=== PATIENT | female | born 1975 | race African-American/Black ===

== ENCOUNTER 2017-09-27 21:39 | Emergency (ER) | payer MEDICAID ==
[~2017-09-27] VITALS: Ht 167.6 cm; Wt 159.0 kg
[~2017-09-27 21:39] MED LIST: ALBU6.7H INH; GLIP10TA10 PO; HUMILIN R SUBCUT; HYDR25TA PO; LISI1TAB13 PO; LISINOPRIL PO; LORA10TA7 PO; MOME13HF2 INH; OMEP20TA2 PO; [UNRECOGNIZED DRUG - OTHER] SUBCUT
[2017-09-27] MEDS ORDERED: METHYLPREDNISOLONE SOD SUCC 125 MG/2 ML VIAL IV STA (22:30)
[2017-09-27] MEDS ORDERED: ALBUTEROL (0.083%) 2.5MG/3ML NEB HHN STA (22:30)
[2017-09-27] MEDS ORDERED: MAGNESIUM 2 G PREMIX 50 ML IV ONE (22:30)
[2017-09-27] MEDS ORDERED: IPRATROPIUM BROMIDE (0.02%) 0.5MG/2.5ML NEB HHN STA (22:30)
[2017-09-27 23:05] LABS: HEMATOCRIT 47.1 % (36.0-48.0); HEMOGLOBIN 16.1 g/dL (12.0-16.0); MEAN CORPUSCULAR HEMOGLOBIN 26.7 pg (28.0-32.0); MEAN CORPUSCULAR VOLUME 77.8 fL (81.0-99.0); PLATELET 123 x1000/uL (130-400); RED BLOOD CELL COUNT 6.05 mill/uL (4.2-5.4); RED CELL DISTRIBUTION WIDTH 19.5 % (11.6-14.6)
[2017-09-28 04:01] VITALS: BP 118/99
== END 2017-09-28 04:06 | disposition home or self-care (01) ==
LOC: ER 22:12
DX: J45.901 Unspecified asthma with (acute) exacerbation (principal); R04.1 Hemorrhage from throat; J44.9 Chronic obstructive pulmonary disease, unspecified; E11.9 Type 2 diabetes mellitus without complications; G47.419 Narcolepsy without cataplexy; I10 Essential (primary) hypertension; I25.2 Old myocardial infarction; F12.10 Cannabis abuse, uncomplicated; E78.00 Pure hypercholesterolemia, unspecified; E66.9 Obesity, unspecified; Z79.84 Long term (current) use of oral hypoglycemic drugs; Z86.73 Personal history of transient ischemic attack (TIA), and cerebral infarction without residual deficits; Z88.0 Allergy status to penicillin; Z87.891 Personal history of nicotine dependence; Z93.0 Tracheostomy status
CPT/HCPCS: 36415; 80048; 85027; 94640; 96365; 96366; 96375; 99285; J2930; J3475; J7611; Z7610

== ENCOUNTER 2018-08-07 12:01 | Inpatient (IN) | payer MEDICAID ==
[~2018-08-07] VITALS: Ht 162.6 cm; Wt 153.3 kg
[2018-08-07] MEDS ORDERED: SODIUM CHLORIDE 0.9% 2,000 ML IV ONE (12:19)
[2018-08-07 13:02] LABS: BASOPHILS % 0.6 % (0.0-2.0); EOSINOPHILS % 1.2 % (0.0-5.0); HEMATOCRIT. 43.8 % (36.0-48.0); HEMOGLOBIN. 15.1 g/dL (12.0-16.0); LYMPHOCYTES % 10.6 % (20.0-50.0); MEAN CORPUSCULAR HEMOGLOBIN 28.1 pg (28.0-32.0); MEAN CORPUSCULAR VOLUME 81.6 fL (81.0-99.0); MEAN PLATELET VOLUME 11.6 fl (7.4-10.4); MONOCYTES % 6.8 % (2.0-8.0); NEUTROPHILS % 80.8 % (40.0-76.0); PLATELET 100 x1000/uL (130-400); RED BLOOD CELL COUNT 5.37 mill/uL (4.2-5.4); RED CELL DISTRIBUTION WIDTH 14.9 % (11.6-14.6)
[2018-08-07 13:20] LABS: HCG SCREEN NEGATIVE
[2018-08-07 13:21] LABS: CHLORIDE 98 mEq/L (98-107)
[2018-08-07 13:26] LABS: ETHANOL BLOOD < 10 mg/dL
[2018-08-07 13:30] LABS: BETA HYDROXYBUTYRATE 0.3 mMol/L (0.0-0.3); CARBAMAZEPINE 6.1 ug/mL (4-12)
[2018-08-07 13:31] LABS: PHENOBARBITAL 2.4 ug/mL (15.0-40.0)
[2018-08-07 13:34] LABS: VALPROIC ACID < 3.0 ug/mL (50-100)
[2018-08-07] MEDS ORDERED: SODIUM CHLORIDE 0.9% 1,000 ML IV ONE ×2 (15:57→17:29)
[2018-08-07 16:18] LABS: CLARITY URINE CLEAR (CLEAR); COLOR URINE YELLOW (YELLOW); KETONES URINE NEGATIVE (NEGATIVE); LEUKOCYTE ESTERASE URINE TRACE (NEGATIVE); NITRITE URINE NEGATIVE (NEGATIVE); OCCULT BLOOD URINE TRACE (NEGATIVE); PROTEIN URINE 1+ (NEGATIVE); SPECIFIC GRAVITY URINE 1.027 (1.005-1.030); UROBILINOGEN URINE 0.2 E.U./dL (0.2-1.0)
[2018-08-07 17:08] LABS: *AMPHETAMINES SCREEN URINE NEGATIVE (NEGATIVE)
[2018-08-07 17:09] LABS: *BARBITURATES SCREEN URINE NEGATIVE (NEGATIVE); *BENZODIAZEPINES SCREEN URINE NEGATIVE (NEGATIVE); *COCAINE SCREEN URINE NEGATIVE (NEGATIVE); METHADONE URINE SCREEN NEGATIVE (NEGATIVE); OPIATES URINE SCREEN NEGATIVE (NEGATIVE); PHENCYCLIDINE URINE SCREEN NEGATIVE (NEGATIVE)
[2018-08-07 17:10] LABS: CANNABINOID URINE SCREEN NEGATIVE (NEGATIVE)
[2018-08-07] MEDS ORDERED: CEFTRIAXONE 2 G PREMIX 50 ML IV ONE (17:15)
[2018-08-07] MEDS ORDERED: LEVETIRACETAM 1,000 MG in SODIUM CHLORIDE 0.9% 100 ML IV NR (17:30)
[2018-08-07] MEDS ORDERED: DEXT 5%/0.45% NACL 1000ML 1,000 ML IV SCH (18:10)
[2018-08-07] MEDS ORDERED: ENOXAPARIN 40MG/0.4ML SYR SUBCUT SCH (18:15)
[2018-08-07] MEDS ORDERED: ACETAMINOPHEN 650MG SUPP PR PRN (18:15)
[2018-08-07] MEDS ORDERED: ONDANSETRON HCL 4MG/2ML INJ IV PRN (18:15)
[2018-08-07] MEDS ORDERED: LORAZEPAM 2MG/ML CPJ IV PRN (18:15)
[2018-08-07] MEDS ORDERED: VANCOMYCIN 1,750 MG in DEXT 5% WATER 250 ML IV SCH (21:30)
[2018-08-07 22:40] VITALS: BP 155/93
[2018-08-07 22:45] VITALS: BP 155/93
[2018-08-08] MEDS ORDERED: DEXTROSE 50% WATER 50ML SYRINGE IV PRN (00:15)
[2018-08-08] MEDS ORDERED: LEVOFLOXACIN 500MG PREMIX 100 ML IV SCH ×2 (02:00)
[2018-08-08 04:00] VITALS: BP 155/99
[2018-08-08] MEDS: BLOOD SUGAR DIAGNOSTIC STRIP TEST SCH ×4 (06:17→21:17)
[2018-08-08] MEDS: INSULIN LISPRO 100 UNITS/ML SUBCUT SCH ×4 (06:28→21:16)
[2018-08-08 06:51] LABS: BASOPHILS % 0.9 % (0.0-2.0); EOSINOPHILS % 0.6 % (0.0-5.0); HEMATOCRIT. 37.6 % (36.0-48.0); HEMOGLOBIN. 13.3 g/dL (12.0-16.0); LYMPHOCYTES % 20.6 % (20.0-50.0); MEAN CORPUSCULAR HEMOGLOBIN 27.7 pg (28.0-32.0); MEAN CORPUSCULAR VOLUME 78.4 fL (81.0-99.0); MEAN PLATELET VOLUME 11.4 fl (7.4-10.4); MONOCYTES % 12.7 % (2.0-8.0); NEUTROPHILS % 65.2 % (40.0-76.0); PLATELET 101 x1000/uL (130-400); RED CELL DISTRIBUTION WIDTH 14.6 % (11.6-14.6)
[2018-08-08 07:26] LABS: CHLORIDE 104 mEq/L (98-107)
[2018-08-08 08:42] VITALS: BP 142/91
[2018-08-08] MEDS ORDERED: LEVETIRACETAM 500 MG in SODIUM CHLORIDE 0.9% 100 ML IV SCH (09:00)
[2018-08-08] MEDS: ENOXAPARIN 40MG/0.4ML SYR SUBCUT SCH ×2 (09:37→20:17)
[2018-08-08 12:00] VITALS: BP 139/68
[2018-08-08] MEDS: NYSTATIN POWDER 15GM TOP SCH ×2 (13:58→18:05)
[2018-08-08 16:11] VITALS: BP 139/82
[2018-08-08] MEDS ORDERED: VANCOMYCIN 1500MG in DEXTROSE 5% WATER 250ML IV SCH ×2 (18:00→21:00)
[2018-08-08 20:00] VITALS: BP 143/87
[2018-08-08] MEDS ORDERED: LEVETIRACETAM 500MG in SODIUM CHLORIDE 0.9% 100ML IV SCH (21:00)
[2018-08-09] MEDS ORDERED: LEVOFLOXACIN 250MG PREMIX 50 ML IV SCH (02:00)
== END 2018-08-08 22:06 | disposition short-term general hospital (02) | DRG 53 ==
LOC: ER 12:11 → 8WST 18:04 → EDBEDREQ 18:09 → SUPCPDRO 18:36 → ENRESERV 20:32
PROVIDERS: ADMIT Hospitalist; ATTEND Hospitalist
DX: G40.909 Epilepsy, unspecified, not intractable, without status epilepticus (principal); L89.159 Pressure ulcer of sacral region, unspecified stage; L89.319 Pressure ulcer of right buttock, unspecified stage; L89.329 Pressure ulcer of left buttock, unspecified stage; Z93.0 Tracheostomy status; E11.65 Type 2 diabetes mellitus with hyperglycemia; E87.1 Hypo-osmolality and hyponatremia; E78.00 Pure hypercholesterolemia, unspecified; E78.5 Hyperlipidemia, unspecified; I10 Essential (primary) hypertension; N39.0 Urinary tract infection, site not specified; E66.9 Obesity, unspecified; S70.311A Abrasion, right thigh, initial encounter; X58.XXXA Exposure to other specified factors, initial encounter; Y93.89 Activity, other specified; Y92.89 Other specified places as the place of occurrence of the external cause; Y99.8 Other external cause status; Z68.43 Body mass index [BMI] 50.0-59.9, adult; I69.354 Hemiplegia and hemiparesis following cerebral infarction affecting left non-dominant side; Z79.4 Long term (current) use of insulin; Z79.899 Other long term (current) drug therapy; Z88.0 Allergy status to penicillin; Z82.49 Family history of ischemic heart disease and other diseases of the circulatory system
CPT/HCPCS: 36415; 80156; 80165; 80184; 80185; 80305; 82010; 82962; 83930; 84134; 84703; 87077; 87186; 93970; 96361; 96365; 96375; 99291; G0482; J0696; J1650; J1815; J1953; J1956; J2060; J3370; J7030; J7050; J7060

== ENCOUNTER 2019-06-02 19:25 | Emergency (ER) | payer MEDICAID ==
[~2019-06-02] VITALS: Ht 172.7 cm; Wt 132.0 kg
[2019-06-02] MEDS ORDERED: ACETAMINOPHEN 325MG TABLET PO STA (19:40)
[2019-06-02] MEDS ORDERED: PIPERACILLIN/TAZ 3.375G PREMIX 50 ML IV ONE (19:45)
[2019-06-02] MEDS ORDERED: SODIUM CHLORIDE 0.9% 1000ML BAG (SEPSIS BOLUS) IV ONE (19:45)
[2019-06-02] MEDS ORDERED: VANCOMYCIN 1 G PREMIX 200 ML IV ONE (19:45)
[2019-06-02 20:35] LABS: HEMATOCRIT. 47.8 % (36.0-48.0); HEMOGLOBIN. 16.2 g/dL (12.0-16.0); MEAN CORPUSCULAR VOLUME 82.4 fL (81.0-99.0); RED CELL DISTRIBUTION WIDTH 15.2 % (11.6-14.6)
[2019-06-02 21:27] LABS: CLARITY URINE CLOUDY (CLEAR); COLOR URINE YELLOW (YELLOW); KETONES URINE NEGATIVE (NEGATIVE); LEUKOCYTE ESTERASE URINE 2+ (NEGATIVE); NITRITE URINE POSITIVE (NEGATIVE); OCCULT BLOOD URINE 2+ (NEGATIVE); PH URINE 5.5 (4.5-8.0); PROTEIN URINE 3+ (NEGATIVE); SPECIFIC GRAVITY URINE 1.016 (1.005-1.030); UROBILINOGEN URINE 0.2 E.U./dL (0.2-1.0)
[2019-06-02 21:33] LABS: CHLORIDE 98 mEq/L (98-107); PROTHROMBIN TIME 10.5 sec (9.6-11.0)
[2019-06-02] MEDS ORDERED: LEVOFLOXACIN 750MG PREMIX 150 ML IV ONE (21:45)
[2019-06-02 23:57] VITALS: BP 185/101
== END 2019-06-03 00:44 | disposition short-term general hospital (02) ==
LOC: ER 19:25 → CANBEDREQ 06-03 00:53
DX: A41.9 Sepsis, unspecified organism (principal); J18.9 Pneumonia, unspecified organism; N30.90 Cystitis, unspecified without hematuria; Z93.0 Tracheostomy status; Z88.0 Allergy status to penicillin; J44.9 Chronic obstructive pulmonary disease, unspecified; E11.9 Type 2 diabetes mellitus without complications; E78.00 Pure hypercholesterolemia, unspecified; I10 Essential (primary) hypertension; Z86.73 Personal history of transient ischemic attack (TIA), and cerebral infarction without residual deficits
CPT/HCPCS: 36415; 71045; 80053; 81003; 82962; 83605; 83880; 84484; 85025; 85610; 87040; 87077; 87086; 87186; 93005; 96365; 96366; 96368; 99291; J1956; J3370; J7030; Z7610

== ENCOUNTER 2021-08-16 13:10 | Emergency (ER) | payer MEDICAID ==
[~2021-08-16] VITALS: Ht 170.2 cm; Wt 130.0 kg
[~2021-08-16 13:10] MED LIST changes: -ALBU6.7H INH; +ALBU6.7H15 INH
[2021-08-16] MEDS ORDERED: ONDANSETRON HCL 4MG/2ML INJ IV STA (13:30)
[2021-08-16] MEDS ORDERED: MORPHINE SULFATE 4 MG/ML CPJ (NOT FOR IM USE) IV STA (13:30)
[2021-08-16 15:58] LABS: BASOPHILS % 0.7 % (0.0-2.0); EOSINOPHILS % 4.2 % (0.0-5.0); HEMATOCRIT. 43.5 % (36.0-48.0); HEMOGLOBIN. 14.6 g/dL (12.0-16.0); LYMPHOCYTES % 26.6 % (20.0-50.0); MEAN CORPUSCULAR HEMOGLOBIN 27.4 pg (28.0-32.0); MEAN CORPUSCULAR VOLUME 81.6 fL (81.0-99.0); MEAN PLATELET VOLUME 10.9 fl (7.4-10.4); MONOCYTES % 9.3 % (2.0-8.0); NEUTROPHILS % 59.2 % (40.0-76.0); PLATELET 115 x1000/uL (130-400); RED BLOOD CELL COUNT 5.34 mill/uL (4.2-5.4); RED CELL DISTRIBUTION WIDTH 15.9 % (11.6-14.6)
[2021-08-16 16:04] LABS: CHLORIDE 106 mEq/L (98-107)
[2021-08-16] MEDS ORDERED: HYDROCHLOROTHIAZIDE 25MG TABLET PO ONE (19:30)
[2021-08-16 21:10] VITALS: BP 159/89
== END 2021-08-16 21:25 | disposition short-term general hospital (02) ==
LOC: ER 13:10 → CANBEDREQ 22:31
DX: R51.9 Headache, unspecified (principal); E11.65 Type 2 diabetes mellitus with hyperglycemia; I10 Essential (primary) hypertension; E11.9 Type 2 diabetes mellitus without complications; J44.1 Chronic obstructive pulmonary disease with (acute) exacerbation; Z20.822 Contact with and (suspected) exposure to COVID-19; Z88.0 Allergy status to penicillin; Z98.890 Other specified postprocedural states; Z86.73 Personal history of transient ischemic attack (TIA), and cerebral infarction without residual deficits; Z86.59 Personal history of other mental and behavioral disorders
CPT/HCPCS: 36415; 70450; 71045; 80053; 83880; 84484; 85025; 87426; 93005; 96374; 96375; 99291; J2270; J2405; Z7610

== ENCOUNTER 2021-09-03 07:53 | Emergency (ER) | payer MEDICAID ==
[~2021-09-03] VITALS: Ht 170.2 cm; Wt 116.0 kg
[2021-09-03] MEDS ORDERED: MORPHINE SULFATE 2 MG/ML CPJ (NOT FOR IM USE) IV ONE (08:15)
[2021-09-03] MEDS ORDERED: ACET-2708 MT (11:23)
[2021-09-03] MEDS ORDERED: MORPHINE SULFATE 4 MG/ML CPJ (NOT FOR IM USE) IV ONE (12:00)
[2021-09-04] MEDS ORDERED: HYDROCODONE/ACETAMINOPHEN 5/325MG TABLET PO ONE (02:00)
[2021-09-04 11:41] VITALS: BP 139/87
== END 2021-09-04 11:45 | disposition home or self-care (01) ==
LOC: ER 08:02
DX: M79.651 Pain in right thigh (principal); W18.39XA Other fall on same level, initial encounter; Y93.89 Activity, other specified; Y92.89 Other specified places as the place of occurrence of the external cause; Y99.8 Other external cause status; J44.9 Chronic obstructive pulmonary disease, unspecified; E11.9 Type 2 diabetes mellitus without complications; E78.00 Pure hypercholesterolemia, unspecified; I10 Essential (primary) hypertension; Z86.73 Personal history of transient ischemic attack (TIA), and cerebral infarction without residual deficits; Z79.899 Other long term (current) drug therapy; Z88.0 Allergy status to penicillin
CPT/HCPCS: 72170; 73552; 96374; 99285; J2270

== ENCOUNTER 2021-09-09 07:13 | Inpatient (IN) | payer MEDICAID ==
[~2021-09-09] VITALS: Ht 160 cm; Wt 120.7 kg
[~2021-09-09 07:13] MED LIST changes: +ACET-2708 MT
[2021-09-09] MEDS ORDERED: SODIUM CHLORIDE 0.9% 1,000 ML IV ONE (08:30)
[2021-09-09 10:00] LABS: BASOPHILS % 0.8 % (0.0-2.0); EOSINOPHILS % 1.3 % (0.0-5.0); HEMATOCRIT. 41.7 % (36.0-48.0); HEMOGLOBIN. 14.8 g/dL (12.0-16.0); LYMPHOCYTES % 16.9 % (20.0-50.0); MEAN CORPUSCULAR HEMOGLOBIN 27.6 pg (28.0-32.0); MEAN CORPUSCULAR VOLUME 77.9 fL (81.0-99.0); MONOCYTES % 13.9 % (2.0-8.0); NEUTROPHILS % 67.1 % (40.0-76.0); PLATELET 121 x1000/uL (130-400); RED BLOOD CELL COUNT 5.35 mill/uL (4.2-5.4); RED CELL DISTRIBUTION WIDTH 15.4 % (11.6-14.6)
[2021-09-09 10:07] LABS: CHLORIDE 104 mEq/L (98-107)
[2021-09-09] MEDS ORDERED: EMPA25TA PO (11:23)
[2021-09-09] MEDS ORDERED: METF-907 PO (11:23)
[2021-09-09] MEDS ORDERED: CETI10TA6 PO (11:23)
[2021-09-09] MEDS ORDERED: ASPI-1497 PO (11:23)
[2021-09-09] MEDS ORDERED: LISI10TA26 PO (11:23)
[2021-09-09] MEDS ORDERED: TOPI50TA24 PO (11:23)
[2021-09-09] MEDS ORDERED: AMLO10TA80 PO (11:23)
[2021-09-09] MEDS ORDERED: CHOL400T11 PO (11:23)
[2021-09-09] MEDS ORDERED: GUAIFENESIN 200MG/10ML SUGAR FREE UDC PO PRN (11:30)
[2021-09-09] MEDS ORDERED: CLONIDINE 0.1MG TABLET PO PRN (11:30)
[2021-09-09] MEDS ORDERED: MAGNESIUM/ALUMINUM HYDROXIDE/SIMETHICONE 30ML UDC PO PRN (11:30)
[2021-09-09] MEDS ORDERED: HYDROCODONE/ACETAMINOPHEN 5/325MG TABLET PO PRN (11:30)
[2021-09-09] MEDS ORDERED: ONDANSETRON HCL 4MG/2ML INJ IV PRN (11:30)
[2021-09-09] MEDS ORDERED: DEXTROSE 50% WATER 50ML SYRINGE IV PRN (11:30)
[2021-09-09] MEDS ORDERED: ACETAMINOPHEN 325MG TABLET PO PRN ×2 (11:30)
[2021-09-09] MEDS ORDERED: INSULIN GLARGINE UD 100 UNITS/ML SYR SUBCUT SCH (12:00)
[2021-09-09] MEDS ORDERED: NALOXONE HCL 0.4MG/ML VIAL IV PRN (13:00)
[2021-09-09 13:11] LABS: HCG SCREEN NEGATIVE
[2021-09-09] MEDS: ENOXAPARIN 40MG/0.4ML SYR SUBCUT SCH (13:18)
[2021-09-09] MEDS: INSULIN LISPRO 100 UNITS/ML SUBCUT SCH ×5 (13:21→21:12)
[2021-09-09] MEDS: BLOOD SUGAR DIAGNOSTIC STRIP TEST SCH ×3 (13:22→21:05)
[2021-09-09] MEDS ORDERED: KEPP500 PO (18:09)
[2021-09-09] MEDS: IPRATROPIUM/ALBUTEROL 0.5-3(2.5)MG/3ML NEB HHN SCH (18:40)
[2021-09-09] MEDS: TOPIRAMATE 25MG TABLET PO SCH (20:32)
[2021-09-09] MEDS: HYDROCHLOROTHIAZIDE 25MG TABLET PO SCH (20:32)
[2021-09-09] MEDS: LEVETIRACETAM 500MG TABLET PO SCH (20:32)
[2021-09-09] MEDS: AMLODIPINE 10MG TABLET PO SCH (20:44)
[2021-09-10] VITALS (10 sets, daily range): BP systolic 111–127; BP diastolic 70–93
[2021-09-10] MEDS: BLOOD SUGAR DIAGNOSTIC STRIP TEST SCH ×4 (08:07→21:03)
[2021-09-10] MEDS: IPRATROPIUM/ALBUTEROL 0.5-3(2.5)MG/3ML NEB HHN SCH ×3 (08:52→20:28)
[2021-09-10] MEDS: HYDROCHLOROTHIAZIDE 25MG TABLET PO SCH (09:00)
[2021-09-10] MEDS: INSULIN LISPRO 100 UNITS/ML SUBCUT SCH ×7 (09:09→21:00)
[2021-09-10] MEDS: LEVETIRACETAM 500MG TABLET PO SCH ×2 (09:51→17:26)
[2021-09-10] MEDS: LISINOPRIL 10MG TABLET PO SCH (09:51)
[2021-09-10] MEDS: TOPIRAMATE 25MG TABLET PO SCH ×2 (09:51→21:03)
[2021-09-10] MEDS: AMLODIPINE 10MG TABLET PO SCH (09:51)
[2021-09-10] MEDS: ENOXAPARIN 40MG/0.4ML SYR SUBCUT SCH (09:52)
[2021-09-10 16:25] LABS: BASOPHILS % 0.7 % (0.0-2.0); EOSINOPHILS % 5.1 % (0.0-5.0); HEMATOCRIT. 36.2 % (36.0-48.0); HEMOGLOBIN. 12.5 g/dL (12.0-16.0); LYMPHOCYTES % 25.4 % (20.0-50.0); MEAN CORPUSCULAR HEMOGLOBIN 26.7 pg (28.0-32.0); MEAN CORPUSCULAR VOLUME 77.5 fL (81.0-99.0); MEAN PLATELET VOLUME 12.1 fl (7.4-10.4); MONOCYTES % 14.2 % (2.0-8.0); NEUTROPHILS % 54.6 % (40.0-76.0); PLATELET 150 x1000/uL (130-400); RED BLOOD CELL COUNT 4.67 mill/uL (4.2-5.4); RED CELL DISTRIBUTION WIDTH 15.3 % (11.6-14.6)
[2021-09-10] MEDS: INSULIN GLARGINE UD 100 UNITS/ML SYR SUBCUT SCH (16:32)
[2021-09-10 16:39] LABS: PHOSPHORUS 2.9 mg/dL (2.5-4.9)
[2021-09-11] VITALS (12 sets, daily range): BP systolic 109–144; BP diastolic 39–87
[2021-09-11] MEDS: IPRATROPIUM/ALBUTEROL 0.5-3(2.5)MG/3ML NEB HHN SCH ×3 (00:22→15:37)
[2021-09-11] MEDS: INSULIN LISPRO 100 UNITS/ML SUBCUT SCH ×5 (07:30→21:35)
[2021-09-11] MEDS: BLOOD SUGAR DIAGNOSTIC STRIP TEST SCH ×4 (07:37→21:34)
[2021-09-11] MEDS: ENOXAPARIN 40MG/0.4ML SYR SUBCUT SCH (10:22)
[2021-09-11] MEDS: INSULIN GLARGINE UD 100 UNITS/ML SYR SUBCUT SCH (10:23)
[2021-09-11] MEDS: HYDROCHLOROTHIAZIDE 25MG TABLET PO SCH (11:20)
[2021-09-11] MEDS: AMLODIPINE 10MG TABLET PO SCH (11:20)
[2021-09-11] MEDS: LISINOPRIL 10MG TABLET PO SCH (11:21)
[2021-09-11] MEDS: TOPIRAMATE 25MG TABLET PO SCH ×2 (11:21→21:35)
[2021-09-11] MEDS: LEVETIRACETAM 500MG TABLET PO SCH ×2 (11:21→17:48)
[2021-09-12] VITALS (12 sets, daily range): BP systolic 109–138; BP diastolic 61–85
[2021-09-12] MEDS: BLOOD SUGAR DIAGNOSTIC STRIP TEST SCH ×4 (07:30→20:43)
[2021-09-12] MEDS: INSULIN LISPRO 100 UNITS/ML SUBCUT SCH ×3 (07:42→17:36)
[2021-09-12] MEDS: HYDROCHLOROTHIAZIDE 25MG TABLET PO SCH (09:00)
[2021-09-12] MEDS: LISINOPRIL 10MG TABLET PO SCH (09:25)
[2021-09-12] MEDS: LEVETIRACETAM 500MG TABLET PO SCH ×2 (09:25→17:26)
[2021-09-12] MEDS: AMLODIPINE 10MG TABLET PO SCH (09:25)
[2021-09-12] MEDS: TOPIRAMATE 25MG TABLET PO SCH ×2 (09:25→20:43)
[2021-09-12] MEDS: ENOXAPARIN 40MG/0.4ML SYR SUBCUT SCH (09:26)
[2021-09-12] MEDS: INSULIN GLARGINE UD 100 UNITS/ML SYR SUBCUT SCH (10:00)
[2021-09-12 12:14] LABS: BG BASE EXCESS -0.4 mmol/L (-2.0-2.0); BG DEOXYHEMOGLOBIN 2.2 % (0.0-5.0); BG FRACTION INSPIRED OXYGEN 28; BG HCO3 ACT 23.3 mmol/L (22.0-26.0); BG METHEMOGLOBIN 0.3 % (0.0-1.5); BG OXYGEN SATURATION 97.8 % (92.0-98.5); BG OXYHEMOGLOBIN 97.5 % (94.0-97.0); BG PCO2 35.2 mmHg (35.0-45.0); BG PH 7.438 (7.350-7.450); BG PO2 102.3 mmHg (75.0-100.0); BG SAMPLE SITE RIGHT RADIAL; BG TOTAL HEMOGLOBIN 13.7 g/dL (12.0-18.0); BG VENT MODE COOL AEROSOL
[2021-09-12 17:58] LABS: BASOPHILS % 0.5 % (0.0-2.0); EOSINOPHILS % 2.1 % (0.0-5.0); HEMATOCRIT. 37.3 % (36.0-48.0); HEMOGLOBIN. 12.8 g/dL (12.0-16.0); LYMPHOCYTES % 16.1 % (20.0-50.0); MEAN CORPUSCULAR HEMOGLOBIN 26.9 pg (28.0-32.0); MEAN CORPUSCULAR VOLUME 78.6 fL (81.0-99.0); MEAN PLATELET VOLUME 12.7 fl (7.4-10.4); MONOCYTES % 13.9 % (2.0-8.0); NEUTROPHILS % 67.4 % (40.0-76.0); PLATELET 166 x1000/uL (130-400); RED BLOOD CELL COUNT 4.75 mill/uL (4.2-5.4); RED CELL DISTRIBUTION WIDTH 15.5 % (11.6-14.6)
[2021-09-12 18:01] LABS: CHLORIDE 109 mEq/L (98-107)
[2021-09-12 18:08] LABS: PHOSPHORUS 3.1 mg/dL (2.5-4.9)
[2021-09-12] MEDS ORDERED: KETOROLAC 15MG/ML VIAL IV PRN (19:00)
[2021-09-12] MEDS: ENOXAPARIN 30MG/0.3ML SYR SUBCUT SCH (20:42)
[2021-09-12] MEDS: DEXT 5%/0.45% NACL 1000ML 1,000 ML IV SCH (20:43)
[2021-09-13] VITALS (11 sets, daily range): BP systolic 86–121; BP diastolic 52–71
[2021-09-13] MEDS: DEXT 5%/0.45% NACL 1000ML 1,000 ML IV SCH ×3 (06:34→23:58)
[2021-09-13] MEDS: IPRATROPIUM/ALBUTEROL 0.5-3(2.5)MG/3ML NEB HHN PRN (08:13)
[2021-09-13] MEDS: BLOOD SUGAR DIAGNOSTIC STRIP TEST SCH ×4 (08:31→20:30)
[2021-09-13] MEDS: HYDROCHLOROTHIAZIDE 25MG TABLET PO SCH (08:57)
[2021-09-13] MEDS: LISINOPRIL 10MG TABLET PO SCH (08:58)
[2021-09-13] MEDS: TOPIRAMATE 25MG TABLET PO SCH ×2 (08:58→20:29)
[2021-09-13] MEDS: LEVETIRACETAM 500MG TABLET PO SCH (08:58)
[2021-09-13] MEDS: AMLODIPINE 10MG TABLET PO SCH (08:58)
[2021-09-13] MEDS: ENOXAPARIN 30MG/0.3ML SYR SUBCUT SCH ×2 (09:16→20:30)
[2021-09-13] MEDS: INSULIN GLARGINE UD 100 UNITS/ML SYR SUBCUT SCH (10:00)
[2021-09-13] MEDS ORDERED: LEVETIRACETAM 500 MG in SODIUM CHLORIDE 0.9% 100 ML IV SCH (12:30)
[2021-09-13] MEDS: LEVETIRACETAM 500MG PREMIX 100 ML IV SCH (13:42)
[2021-09-13 15:39] LABS: BG CARBOXYHEMOGLOBIN 0.1 % (0.5-1.5); BG DEOXYHEMOGLOBIN 3.1 % (0.0-5.0); BG HCO3 ACT 25.5 mmol/L (22.0-26.0); BG METHEMOGLOBIN 0.3 % (0.0-1.5); BG OXYGEN SATURATION 96.9 % (92.0-98.5); BG OXYHEMOGLOBIN 96.5 % (94.0-97.0); BG PCO2 39.9 mmHg (35.0-45.0); BG PH 7.423 (7.350-7.450); BG SAMPLE SITE RIGHT RADIAL; BG TOTAL HEMOGLOBIN 12.7 g/dL (12.0-18.0); BG VENT MODE COOL AEROSOL
[2021-09-13 15:46] LABS: HEMATOCRIT. 36.7 % (36.0-48.0); HEMOGLOBIN. 12.7 g/dL (12.0-16.0); MEAN CORPUSCULAR HEMOGLOBIN 27.3 pg (28.0-32.0); MEAN CORPUSCULAR VOLUME 78.8 fL (81.0-99.0); MEAN PLATELET VOLUME 11.8 fl (7.4-10.4); PLATELET 148 x1000/uL (130-400); RED BLOOD CELL COUNT 4.66 mill/uL (4.2-5.4); RED CELL DISTRIBUTION WIDTH 15.4 % (11.6-14.6)
[2021-09-13 16:04] LABS: PHOSPHORUS 3.3 mg/dL (2.5-4.9)
[2021-09-13 17:28] LABS: PLATELET ESTIMATE NORMAL
[2021-09-13] MEDS: INSULIN LISPRO 100 UNITS/ML SUBCUT SCH ×2 (18:33→20:30)
[2021-09-14] VITALS (12 sets, daily range): BP systolic 102–147; BP diastolic 50–93
[2021-09-14] MEDS: LEVETIRACETAM 500MG PREMIX 100 ML IV SCH ×3 (00:04→20:20)
[2021-09-14 05:45] LABS: PHOSPHORUS 2.9 mg/dL (2.5-4.9)
[2021-09-14] MEDS: DEXT 5%/0.45% NACL 1000ML 1,000 ML IV SCH ×3 (05:57→20:19)
[2021-09-14 06:06] LABS: BASOPHILS % 0.6 % (0.0-2.0); EOSINOPHILS % 3.8 % (0.0-5.0); HEMATOCRIT. 31.4 % (36.0-48.0); LYMPHOCYTES % 27.4 % (20.0-50.0); MEAN CORPUSCULAR HEMOGLOBIN 28.1 pg (28.0-32.0); MEAN PLATELET VOLUME 11.9 fl (7.4-10.4); MONOCYTES % 14.1 % (2.0-8.0); NEUTROPHILS % 54.1 % (40.0-76.0); PLATELET 148 x1000/uL (130-400); RED BLOOD CELL COUNT 3.92 mill/uL (4.2-5.4); RED CELL DISTRIBUTION WIDTH 15.8 % (11.6-14.6)
[2021-09-14] MEDS: BLOOD SUGAR DIAGNOSTIC STRIP TEST SCH ×4 (07:30→20:21)
[2021-09-14] MEDS: ENOXAPARIN 30MG/0.3ML SYR SUBCUT SCH ×2 (08:48→20:20)
[2021-09-14] MEDS: HYDROCHLOROTHIAZIDE 25MG TABLET PO SCH (08:48)
[2021-09-14] MEDS: AMLODIPINE 10MG TABLET PO SCH (08:48)
[2021-09-14] MEDS: LISINOPRIL 10MG TABLET PO SCH (08:49)
[2021-09-14] MEDS: TOPIRAMATE 25MG TABLET PO SCH ×2 (08:49→20:20)
[2021-09-14] MEDS: INSULIN LISPRO 100 UNITS/ML SUBCUT SCH ×4 (08:50→20:20)
[2021-09-14] MEDS: INSULIN GLARGINE UD 100 UNITS/ML SYR SUBCUT SCH (11:53)
[2021-09-15] VITALS (12 sets, daily range): BP systolic 129–160; BP diastolic 82–95
[2021-09-15] MEDS: DEXT 5%/0.45% NACL 1000ML 1,000 ML IV SCH ×3 (01:57→16:58)
[2021-09-15 07:41] LABS: BASOPHILS % 0.9 % (0.0-2.0); EOSINOPHILS % 5.1 % (0.0-5.0); HEMATOCRIT. 33.8 % (36.0-48.0); HEMOGLOBIN. 11.9 g/dL (12.0-16.0); LYMPHOCYTES % 22.1 % (20.0-50.0); MEAN CORPUSCULAR HEMOGLOBIN 27.4 pg (28.0-32.0); MEAN CORPUSCULAR VOLUME 77.8 fL (81.0-99.0); MEAN PLATELET VOLUME 11.3 fl (7.4-10.4); MONOCYTES % 13.6 % (2.0-8.0); NEUTROPHILS % 58.3 % (40.0-76.0); PLATELET 146 x1000/uL (130-400); RED BLOOD CELL COUNT 4.35 mill/uL (4.2-5.4); RED CELL DISTRIBUTION WIDTH 15.5 % (11.6-14.6)
[2021-09-15] MEDS: BLOOD SUGAR DIAGNOSTIC STRIP TEST SCH ×4 (07:46→20:46)
[2021-09-15 07:53] LABS: CHLORIDE 106 mEq/L (98-107)
[2021-09-15 08:03] LABS: PHOSPHORUS 2.2 mg/dL (2.5-4.9)
[2021-09-15] MEDS ORDERED: POTASSIUM CHLORIDE INJ 40 MEQ in DEXT 5% WATER 250 ML IV ONE (08:30)
[2021-09-15] MEDS: ENOXAPARIN 30MG/0.3ML SYR SUBCUT SCH ×2 (09:43→20:50)
[2021-09-15] MEDS: TOPIRAMATE 25MG TABLET PO SCH ×2 (09:43→20:46)
[2021-09-15] MEDS: LEVETIRACETAM 500MG PREMIX 100 ML IV SCH ×2 (09:43→20:48)
[2021-09-15] MEDS: ASPIRIN 81MG TABLET PO SCH (09:43)
[2021-09-15] MEDS: INSULIN GLARGINE UD 100 UNITS/ML SYR SUBCUT SCH (09:44)
[2021-09-15] MEDS: INSULIN LISPRO 100 UNITS/ML SUBCUT SCH ×4 (09:44→20:47)
[2021-09-15] MEDS: KCL 20MEQ/100ML X 2 FOR TOTAL KCL 40MEQ/200ML IV SCH ×2 (09:45→12:31)
[2021-09-15] MEDS: ASCORBIC ACID 500 MG TABLET PO SCH (13:27)
[2021-09-15] MEDS ORDERED: POTASSIUM PHOS,M-BASIC-D-BASIC 20 MMOL in DEXT 5% WATER 243.3333 ML IV NR (15:00)
[2021-09-15] MEDS ORDERED: ASCORBIC ACID 500MG/5ML 120ML PO SCH (17:00)
[2021-09-15] MEDS: ZINC SULFATE 220 MG ( 50 ) CAPSULE PO SCH (17:01)
[2021-09-16] VITALS (11 sets, daily range): BP systolic 115–153; BP diastolic 78–100
[2021-09-16] MEDS: DEXT 5%/0.45% NACL 1000ML 1,000 ML IV SCH (05:40)
[2021-09-16 06:32] LABS: PHOSPHORUS 2.8 mg/dL (2.5-4.9)
[2021-09-16 06:36] LABS: BASOPHILS % 0.9 % (0.0-2.0); EOSINOPHILS % 4.9 % (0.0-5.0); HEMATOCRIT. 34.3 % (36.0-48.0); HEMOGLOBIN. 12.2 g/dL (12.0-16.0); LYMPHOCYTES % 31.2 % (20.0-50.0); MEAN CORPUSCULAR HEMOGLOBIN 27.5 pg (28.0-32.0); MEAN CORPUSCULAR VOLUME 77.3 fL (81.0-99.0); MEAN PLATELET VOLUME 11.8 fl (7.4-10.4); MONOCYTES % 14.3 % (2.0-8.0); NEUTROPHILS % 48.7 % (40.0-76.0); PLATELET 159 x1000/uL (130-400); RED BLOOD CELL COUNT 4.44 mill/uL (4.2-5.4); RED CELL DISTRIBUTION WIDTH 15.7 % (11.6-14.6)
[2021-09-16] MEDS: INSULIN LISPRO 100 UNITS/ML SUBCUT SCH ×3 (07:21→18:12)
[2021-09-16] MEDS: BLOOD SUGAR DIAGNOSTIC STRIP TEST SCH ×3 (07:21→18:03)
[2021-09-16] MEDS: ASCORBIC ACID 500 MG TABLET PO SCH (08:12)
[2021-09-16] MEDS: ZINC SULFATE 220 MG ( 50 ) CAPSULE PO SCH (08:12)
[2021-09-16] MEDS: ASPIRIN 81MG TABLET PO SCH (08:12)
[2021-09-16] MEDS: LEVETIRACETAM 500MG PREMIX 100 ML IV SCH (08:13)
[2021-09-16] MEDS: TOPIRAMATE 25MG TABLET PO SCH (08:13)
[2021-09-16] MEDS: ENOXAPARIN 30MG/0.3ML SYR SUBCUT SCH (08:13)
[2021-09-16] MEDS: IPRATROPIUM/ALBUTEROL 0.5-3(2.5)MG/3ML NEB HHN PRN ×3 (08:49→16:36)
[2021-09-16] MEDS: INSULIN GLARGINE UD 100 UNITS/ML SYR SUBCUT SCH (10:08)
[2021-09-16] MEDS ORDERED: ZINC220C2 PO (18:01)
[2021-09-16] MEDS ORDERED: LANTUSUD SUBCUT (18:01)
[2021-09-16] MEDS ORDERED: INSLIS SUBCUT (18:01)
[2021-09-16] MEDS ORDERED: LOV30 SUBCUT (18:01)
[2021-09-16] MEDS ORDERED: ONDA4VIA22 IV (18:01)
[2021-09-16] MEDS ORDERED: DEXT50DI6 IV (18:01)
[2021-09-16] MEDS ORDERED: ASCO500T20 PO (18:01)
[2021-09-16] MEDS ORDERED: DEXTL PO (18:01)
[2021-09-16] MEDS ORDERED: CLON0.1T PO (18:01)
== END 2021-09-16 20:18 | DRG 143 ==
LOC: ER 07:13 → 5EST 09:57 → SUPCPDRO 10:44 → ENRESERV 22:30
PROVIDERS: ADMIT Internal Medicine; ATTEND Internal Medicine
PROC: 0B21XFZ Change Tracheostomy Device in Trachea, External Approach (ICD-10-PCS; 2021-09-09)
PROC: 4A10X4Z Monitoring of Central Nervous Electrical Activity, External Approach (ICD-10-PCS; principal; 2021-09-15)
DX: J95.03 Malfunction of tracheostomy stoma (principal); I63.512 Cerebral infarction due to unspecified occlusion or stenosis of left middle cerebral artery; J96.20 Acute and chronic respiratory failure, unspecified whether with hypoxia or hypercapnia; G93.40 Encephalopathy, unspecified; L89.220 Pressure ulcer of left hip, unstageable; E44.0 Moderate protein-calorie malnutrition; L89.156 Pressure-induced deep tissue damage of sacral region; N17.9 Acute kidney failure, unspecified; I11.9 Hypertensive heart disease without heart failure; E11.9 Type 2 diabetes mellitus without complications; D50.9 Iron deficiency anemia, unspecified; E66.01 Morbid (severe) obesity due to excess calories; E78.5 Hyperlipidemia, unspecified; G40.909 Epilepsy, unspecified, not intractable, without status epilepticus; J44.9 Chronic obstructive pulmonary disease, unspecified; E87.6 Hypokalemia; J39.8 Other specified diseases of upper respiratory tract; E83.39 Other disorders of phosphorus metabolism; Z20.822 Contact with and (suspected) exposure to COVID-19; E78.00 Pure hypercholesterolemia, unspecified; K80.20 Calculus of gallbladder without cholecystitis without obstruction; Z79.4 Long term (current) use of insulin; Z79.51 Long term (current) use of inhaled steroids; Z79.82 Long term (current) use of aspirin; Z79.84 Long term (current) use of oral hypoglycemic drugs; Z79.899 Other long term (current) drug therapy; Z82.49 Family history of ischemic heart disease and other diseases of the circulatory system; Z87.891 Personal history of nicotine dependence; Z88.0 Allergy status to penicillin; Z74.01 Bed confinement status; Z68.42 Body mass index [BMI] 45.0-49.9, adult; R00.0 Tachycardia, unspecified
CPT/HCPCS: 36415; 36600; 70551; 71045; 76770; 80048; 80053; 80061; 82040; 82375; 82805; 82962; 83036; 83735; 84100; 84134; 84703; 85025; 87426; 92610; 93005; 94640; 99291; J1650; J1815; J1885; J1953; J2405; J3480; J3490; J7030; J7060